=== PATIENT | female | born 1980 | race American Indian/Alaskan Native ===

== ENCOUNTER 2018-04-07 06:54 | Emergency (ER) | payer OTHER ==
[2018-04-07 07:31] VITALS: BP 150/77
[2018-04-07] MEDS ORDERED: DECADRON IM ONE (07:48)
[2018-04-07] MEDS ORDERED: TYLENOL PO ONE (07:48)
--- NOTE | 2018-04-07 07:50 | Emergency Department Report ---
Minor Respiratory - HPI Chief Complaint: Sore Throat Stated Complaint: BODY PAIN/DIARRHEA/SORE THROAT Time Seen by Provider: 04/07/18 07:43 Duration: 5 Days Pain Location: Throat Severity: mild Minor Respiratory: Yes Sore Throat, Yes Able to Tolerate Fluids, No Rhinorrhea, No Ear Pain, No Cough, No Sick Contacts, No Hemoptysis, No Chest Pain, No Shortness of Breath, No Fever Other History: Patient is a pleasant 37-year-old Afro-[place] female who comes to the emergency room today complaining of sore throat. She was seen by her primary care physician a few days ago and was told it was not strep throat and she was subsequently sent home with Motrin. Patient has no fever. She does report onset of diarrhea during the night. These 2 are probably not related. I have informed her that there is a gastroenteritis virus going around and she probably has a combination of the original pharyngitis and some GI upset. Patient reports her PCP swabbed her for flu and strep and they were both negative. Patient is nontoxic, ambulatory, taking by mouth. We'll send her home with antibiotics at this point in time. We've discussed her GI symptoms. ED Review of Systems ROS: Stated complaint: BODY PAIN/DIARRHEA/SORE THROAT Other details as noted in HPI Comment: All other systems reviewed and negative Constitutional: denies: chills Eyes: denies: eye pain ENT: as per HPI, throat pain Respiratory: denies: orthopnea Cardiovascular: denies: dyspnea on exertion Endocrine: denies: flushing Gastrointestinal: denies: nausea Genitourinary: denies: urgency Musculoskeletal: denies: back pain Skin: denies: rash Neurological: denies: headache Psychiatric: denies: anxiety Hematological/Lymphatic: denies: easy bleeding ED Past Medical Hx - Past Medical History Previous Medical History?: No - Surgical History Past Surgical History?: No - Social History Smoking Status: Never Smoker Substance Use Type: None - Medications Home Medications: Home Medications Medication Instructions Recorded Confirmed Last Taken Type Amoxicillin [Trimox CAP] 500 mg PO BID #20 capsule 04/07/18 Unknown Rx Fluticasone [Flonase] 1 spray NS QDAY #1 bottle 04/07/18 Unknown Rx predniSONE [Deltasone] 20 mg PO DAILY #5 tablet 04/07/18 Unknown Rx Minor Respiratory Exam - Exam General: Vital signs noted. No distress. Alert and acting appropriately. HEENT: Yes Pharyngeal Erythema, Yes Pharyngeal Exudates, Yes Moist Mucous Membranes, No Rhinorrhea, No Conjuctival Injection, No Frontal Tenderness, No Maxillary Tenderness Ear: Neither TM Bulge, Neither TM Erythema, Neither EAC Pain, Neither EAC Discharge Neck: Yes Supple, No Adenopathy Lungs: Yes Good Air Exchange, No Wheezes, No Ronchi, No Stridor, No Cough, No Labored Respirations, No Retractions, No Use of Accessory Muscles, No Other Abnormal Lung Sounds Heart: Yes Regular, No Murmur Abdomen: Yes Normal Bowel Sounds, No Tenderness, No Peritoneal Signs Skin: No Rash, No Edema Neurologic: Alert and oriented, no deficits. Musculoskeletal: Unremarkable. ED Course Vital Signs 04/07/18 07:27 Temperature 99.2 F Pulse Rate 114 H Respiratory 18 Rate Blood Pressure 150/77 O2 Sat by Pulse 100 Oximetry ED Medical Decision Making - Medical Decision Making Upper respiratory tract infection seen by her primary care a few days ago. Was having same symptoms. Negative fluid negative strep. Patient is nontoxic, ambulatory afebrile and taking by mouth. We'll treat with amoxicillin at this point in time. Critical care attestation.: If time is entered above; I have spent that time in minutes in the direct care of this critically ill patient, excluding procedure time. ED Disposition Clinical Impression: Exudative pharyngitis Disposition: - TO HOME OR SELFCARE Is pt being admited?: No Does the pt Need Aspirin: No Condition: Stable Instructions: Pharyngitis (ED) Additional Instructions: HYDRATE WELL WITH WATER Motrin and/or Tylenol alternating for fever or pain Follow up with interventional cardiologist Prescriptions: Amoxicillin [Trimox CAP] 500 mg PO BID #20 capsule Fluticasone [Flonase] 1 spray NS QDAY #1 bottle predniSONE [Deltasone] 20 mg PO DAILY #5 tablet Referrals: JENNIFER RIVERA MD [Primary Care Provider] - 3-5 Days Time of Disposition: 07:47
== END 2018-04-07 08:56 | disposition home or self-care (01) ==
LOC: ED 06:54
DX: J02.9 Acute pharyngitis, unspecified (principal); R19.7 Diarrhea, unspecified
CPT/HCPCS: 96372; 99282; J1100